=== PATIENT | male | born 1990 | race Caucasian/White ===

== ENCOUNTER 2019-02-07 10:05 | Inpatient (IN) ==
[2019-02-07] MEDS ORDERED: ZOFRAN IV PRN (11:08)
[2019-02-07] MEDS ORDERED: MOTRIN PO PRN (11:08)
[2019-02-07] MEDS ORDERED: SENOKOT PO PRN (11:08)
[2019-02-07] MEDS ORDERED: MAALOX PLUS LIQUID PO PRN (11:08)
[2019-02-07] MEDS ORDERED: TYLENOL PO PRN (11:08)
[2019-02-07] MEDS ORDERED: IMODIUM PO PRN ×2 (11:08)
[2019-02-07] MEDS ORDERED: NICODERM PATCH TD PRN (11:08)
[2019-02-07] MEDS ORDERED: NICOTINE GUM BUCCAL PRN (11:08)
[2019-02-07] MEDS ORDERED: TUBERSOL ID ONE (11:08)
[2019-02-07] MEDS ORDERED: DULCOLAX PR PRN (11:08)
[2019-02-07] MEDS ORDERED: ZOFRAN ODT PO PRN (11:08)
[2019-02-07] MEDS ORDERED: D5W 1,000 ML IV PRN (11:08)
[2019-02-07] MEDS ORDERED: PHENOBARBITAL IV PRN (11:08)
[2019-02-07] MEDS ORDERED: DESYREL PO PRN (11:08)
[2019-02-07] MEDS ORDERED: SEROQUEL PO PRN (11:08)
[2019-02-07] MEDS ORDERED: ZOFRAN IM PRN (11:08)
[2019-02-07 11:48] LABS: HEMATOCRIT 42.3 % (42.0-52.0); HEMOGLOBIN 14.9 g/dL (14.0-18.0); MCH 28.5 PG (27-31); MCHC 35.2 g/dL (33-37); MPV 8.9 FL (7.4-10.4); RBC 5.22 XMIL (4.7-6.1); RDW 13.2 % (11.5-14.5); WBC 9.82 X1000 (4.8-10.8)
[2019-02-07 12:05] LABS: INR 0.95; PROTIME 13.2 Seconds (11.0-16.0)
[2019-02-07 12:09] LABS: AGAP 9; ALBUMIN 4.3 g/dL (3.5-5.0); ALKALINE PHOSPHATASE 79 U/L (32-122); AMYLASE 43 U/L (20-200); BUN 13 mg/dL (8-22); CALCIUM 9.4 mg/dL (8.8-10.2); CHLORIDE 102 mmol/L (98-107); COSMO 277; CREATININE 0.6 mg/dL (0.7-1.2); ESTIMATED GFR > 60; GLUCOSE 119 mg/dL (70-104); GOT 17 U/L (10-34); GPT 15 U/L (10-44); LIPASE 20 U/L (13-60); POTASSIUM 4.5 mmol/L (3.5-5.1); SODIUM 138 mmol/L (136-145); TCO2 27 mmol/L (25-35); TOTAL PROTEIN 7.4 g/dL (6.3-8.3)
[2019-02-07 12:36] LABS: URINE SOURCE VOIDED
[2019-02-07 12:52] LABS: BILIRUBIN URINE NEGATIVE (NEGATIVE); BLOOD URINE NEGATIVE (NEGATIVE); CLARITY CLEAR (CLEAR); COLOR YELLOW; GLUCOSE URINE NEGATIVE (NEGATIVE); KETONE URINE TRACE mg/dL (NEGATIVE); LEUKOCYTES URINE TRACE (NEGATIVE); NITRITE URINE NEGATIVE (NEGATIVE); PROTEIN URINE TRACE mg/dL (NEGATIVE); SP GRAVITY URINE 1.015; UROBILINOGEN URINE NORMAL
[2019-02-07 12:53] LABS: URINE CRYSTAL CA OXALATE PRESENT /HPF; URINE EPITHELIAL CELLS <10 /HPF (<10)
[2019-02-07 12:54] LABS: UR AMPHETAMINES QUAL PRESUMPTIVE POSITIVE (NONE DETECT)
[2019-02-07 12:55] LABS: UR BARBITUATES QUAL NONE DETECTED (NONE DETECT); UR BENZODIAZEPIN QUAL PRESUMPTIVE POSITIVE (NONE DETECT); UR CANNABINOIDS QUAL NONE DETECTED (NONE DETECT); UR COCAINE QUAL NONE DETECTED (NONE DETECT); UR METHADONE QUAL NONE DETECTED (NONE DETECT); UR METHAMPHETAMINE QUAL NONE DETECTED (NONE DETECT); UR OPIATES QUAL NONE DETECTED (NONE DETECT); UR OXYCODONE QUAL NONE DETECTED (NONE DETECT); UR PCP QUAL NONE DETECTED (NONE DETECT); UR PROPOXYPHENE QUAL NONE DETECTED (NONE DETECT); UR TCA QUAL NONE DETECTED (NONE DETECT)
[2019-02-07] MEDS ORDERED: LIBRIUM PO PRN (13:20)
[2019-02-07] MEDS ORDERED: BENTYL PO PRN (13:20)
[2019-02-07] MEDS ORDERED: ROBAXIN PO PRN (13:20)
[2019-02-07] MEDS ORDERED: SINEMET 25/100 PO PRN (13:20)
[2019-02-07] MEDS ORDERED: ATARAX PO PRN (13:20)
[2019-02-07] MEDS: SUBOXONE 2 MG/0.5 MG FILM SL SCH (14:22)
--- NOTE | 2019-02-07 20:01 | HISTORY AND PHYSICAL ---
CHIEF COMPLAINT: Nausea and vomiting. HISTORY OF PRESENT ILLNESS: The patient is a 28-year-old male who presented to [facility] secondary to nausea, vomiting, abdominal pain and myalgias. The patient notes that he has been having withdrawal symptoms that he has been trying to alleviate. SOCIAL HISTORY: The patient is single. He is unemployed. Lives at home in [place]. PAST MEDICAL HISTORY: Chronic anxiety, ADHD. MEDICATIONS: Adderall 30 mg 3 times a day. ALLERGIES: Augmentin. REVIEW OF SYSTEMS: CINA score is elevated at 15 secondary to nausea, vomiting, abdominal pain, myalgias and paresthesias. The patient notes that his symptoms unfortunately continue to worsen until he uses IV heroin to alleviate said symptoms. He has been having watery eyes, runny nose, frequent sweating, yawning, occasional dry heaves. Denies any chest pain or palpitations. Denies fevers or chills. Denies any dysuria. No frequency, urgency, hesitancy, polyuria or polydipsia. Denies any skin rashes, weight loss or weight gain. SUBSTANCE ABUSE HISTORY: The patient was in a treatment facility, [facility] for 28 days in 2014. He remained sober for approximately a year before he relapsed. He has a history of starting to drink alcohol around 18, has not used in approximately a month. He started marijuana at 21, has not used in over a month. He has used depressants, first at 12 to 14, currently uses only every now and then. He has tried mushrooms once. He started opiates at age 20. Currently, he is abusing heroin at half a gram to a gram a day. He started smoking at 19, currently smokes a pack a day. FAMILY HISTORY: Noncontributory. PHYSICAL EXAMINATION: VITAL SIGNS: Reviewed and stable. GENERAL: The patient is awake, alert and oriented. He is in no current respiratory distress. HEENT: Normocephalic. NECK: Supple. CARDIOVASCULAR: Regular rate. No murmurs. CHEST: Clear and nonlabored. ABDOMEN: Soft, nondistended, nontender. EXTREMITIES: Moves all extremities. NEUROLOGIC: No focal neurological changes. SKIN: Warm and dry. No rashes. ASSESSMENT: 1. Nausea and vomiting. 2. Abdominal pain. 3. Dry heaves. 4. Paresthesias. 5. Paroxysmal sweating. 6. Opiate use and abuse with intravenous heroin. PLAN: We will admit the patient to the hospital for stabilization. We will place him on Suboxone, begin counseling. We will treat symptomatically for his withdrawal symptoms. Further orders as needed. cc: Tl Sequeira MD
[2019-02-08] MEDS: SUBOXONE 2 MG/0.5 MG FILM SL SCH ×2 (01:52→13:15)
[2019-02-08] MEDS: PROTONIX PO SCH (06:06)
[2019-02-08] MEDS: VITAMIN B-1 PO SCH (08:46)
[2019-02-08] MEDS: FOLIC ACID PO SCH (08:46)
[2019-02-08] MEDS: THERA M PLUS PO SCH (08:46)
--- NOTE | 2019-02-08 21:37 | PROGRESS NOTE ---
DATE: 02/08/2019 SUBJECTIVE: Patient notes he is feeling okay, wants to continue to try to wean down Suboxone. States his withdrawal symptoms are improving, but not completely gone. Denies any fevers or chills. PHYSICAL EXAMINATION: Vital Signs: Reviewed. Temp 98 degrees, pulse 64, respiratory 18, BP 106/66. General: Patient is in no current respiratory distress. He is alert oriented x3. HEENT: Normocephalic. Neck: Supple. Cardiovascular: Regular rate. No murmurs. Chest: Clear, nonlabored. Abdomen: Soft, nondistended. Extremities: Moves all extremities. ASSESSMENT: 1. Nausea and vomiting. 2. Abdominal pain. 3. Myalgias. 4. Paresthesias. 5. Paroxysmal sweating. 6. Opiate abuse, withdrawal and stabilization. 7. Chronic anxiety. PLAN: We will continue patient in the hospital. Continue to follow. Further orders as needed. cc: Tl Sequeira MD
[2019-02-09] MEDS: SUBOXONE 2 MG/0.5 MG FILM SL SCH ×2 (01:11→13:27)
[2019-02-09] MEDS: PROTONIX PO SCH (06:01)
[2019-02-09] MEDS: VITAMIN B-1 PO SCH (09:35)
[2019-02-09] MEDS: THERA M PLUS PO SCH (09:35)
[2019-02-09] MEDS: FOLIC ACID PO SCH (09:35)
[2019-02-10] MEDS: SUBOXONE 2 MG/0.5 MG FILM SL SCH (01:04)
[2019-02-10] MEDS: PROTONIX PO SCH (06:30)
--- NOTE | 2019-02-10 07:23 | PROGRESS NOTE ---
DATE: 02/10/2019 SUBJECTIVE: Patient states she still feels bad, but is feeling better each day. Does not want to increase Suboxone and wants to wean totally off. PHYSICAL EXAMINATION: Vital Signs: Reviewed and stable. General: He is awake, alert. He is in no current respiratory distress. HEENT: Normocephalic. Neck: Supple. Cardiovascular: Regular rate. No murmurs. Chest: Clear, nonlabored. Abdomen: Symptoms of,t nondistended. ASSESSMENT: 1. Nausea, vomiting, abdominal pain, myalgias, paresthesias, paroxysmal sweating. 2. Opiate abuse withdrawal and stabilization. PLAN: Continue counseling and wean. Further orders as needed. cc: Tl Sequeira MD
[2019-02-10] MEDS: THERA M PLUS PO SCH (13:16)
[2019-02-10] MEDS: FOLIC ACID PO SCH (13:16)
[2019-02-10] MEDS: SUBUTEX SL SCH (13:17)
[2019-02-10] MEDS: VITAMIN B-1 PO SCH (13:17)
[2019-02-11] MEDS: SUBUTEX SL SCH ×2 (01:06→10:27)
[2019-02-11] MEDS: PROTONIX PO SCH (06:32)
--- NOTE | 2019-02-11 08:47 | PROGRESS NOTE ---
DATE: 02/10/2019 SUBJECTIVE: Patient notes that he is still feeling okay. Still wants to continue to wean. PHYSICAL EXAMINATION: Vital Signs: Reviewed and stable. Temperature 98 degrees, pulse 64, respiratory 18, BP 109/61. General: Patient is awake, alert, currently in no distress. HEENT: Normocephalic. Neck: Supple. Cardiovascular: Regular rate. No murmurs. Chest: Clear and nonlabored. Abdomen: Soft, nondistended. Extremities: Moves all extremities. Neurologic: No changes. ASSESSMENT: 1. Nausea, vomiting. 2. Abdominal pain. 3. Myalgias. 4. Paresthesias. 5. Paroxysmal sweating. 6. Opiate abuse withdrawal and stabilization. PLAN: Continue to wean Suboxone. We will cut down to 1 mg buprenorphine twice daily today, and hopefully home in the next day or two. cc: Tl Sequeira MD
[2019-02-11] MEDS: VITAMIN B-1 PO SCH (10:27)
[2019-02-11] MEDS: FOLIC ACID PO SCH (10:27)
[2019-02-11] MEDS: THERA M PLUS PO SCH (10:27)
[2019-02-11] MEDS ORDERED: SUBUTEX SL PRN (11:43)
--- NOTE | 2019-02-11 21:50 | PROGRESS NOTE ---
DATE: 02/11/2019 SUBJECTIVE: Patient states that he is feeling okay. Thinks he is going to be able to continue to wean down and off. Tolerated the 1 mg twice daily yesterday. PHYSICAL EXAMINATION: Vital Signs: Reviewed and stable. He is awake, alert. He is in no distress. Temperature 99 degrees, pulse 71, BP 112/65. Cardiovascular: Regular rate. Chest: Clear. Abdomen: Soft. ASSESSMENT: 1. Nausea, vomiting. 2. Abdominal pain. 3. Myalgias. 4. Paresthesias. 5. Opiate abuse, withdrawal and stabilization. PLAN: We will continue to wean patient on Suboxone. He currently is on 1 mg of Subutex this morning. If he tolerates this, we will discharge him home with outpatient follow-up in rehab in the a.m. cc: Tl Sequeira MD
[2019-02-12] MEDS: PROTONIX PO SCH (06:15)
[2019-02-12 07:59] VITALS: BP 112/84
[2019-02-12] MEDS: FOLIC ACID PO SCH (10:14)
[2019-02-12] MEDS: THERA M PLUS PO SCH (10:14)
[2019-02-12] MEDS: VITAMIN B-1 PO SCH (10:14)
--- NOTE | 2019-02-12 15:44 | DISCHARGE SUMMARY ---
ADMISSION DATE: 02/07/2019 DISCHARGE DATE: 02/12/2019 DISCHARGE DIAGNOSES: 1. Nausea, vomiting. 2. Abdominal pain. 3. Myalgias. 4. Paresthesias. 5. Paroxysmal sweating. 6. Opiate abuse, withdrawal and stabilization. CONSULTATIONS: None. PROCEDURES: None. BRIEF HOSPITAL COURSE: The patient is a 28-year-old male who presented to the [facility] secondary to nausea, vomiting, abdominal pain, tremors, and myalgias. The patient was placed on Suboxone and slowly weaned down over the next several days. On discharge, he has actually been 24 hours without buprenorphine. We decreased him to 1 mg twice daily and then 1 mg daily prior to discharge. DISPOSITION: Patient notes that his withdrawal symptoms have improved. He is feeling better. He still wants to go home without any controlled substances. Notes that overall he is feeling tired but much improved. Discussed with patient the use of naltrexone. Prescription was written. Discussed to not use that for the next 3 to 5 days and then to try half a pill. If symptoms come back, he needs to wait another 3 to 5 days. Once he is able to tolerate half a dose for 2 days, then he needs to go to the full doses and stay on that for at least 5 to 6 months until he can learn to live without opiates. Discussed he needs outpatient life counseling as well as drug counseling. cc: Tl Sequeira MD
== END 2019-02-12 13:06 | disposition home or self-care (01) | DRG 897 ==
LOC: P.MEDSURG 10:05
PROVIDERS: ADMIT Family Medicine; ATTEND Family Medicine
CPT/HCPCS: 80053; 80104; 80301; 80305; 80307; 80320; 81001; 82055; 82150; 83690; 85027; 85610; A9270; G0431; G0434; G0477; G0480; G6040